=== PATIENT | male | born 1980 | race Caucasian/White ===

== ENCOUNTER 2023-10-18 23:16 | Emergency (ER) | payer BC ==
[~2023-10-18] VITALS: Ht 180.3 cm; Wt 113.6 kg
[2023-10-18 23:36] LABS: BASOPHILS # (AUTO) 0.1 X10'3 (0-0.2); EOSINOPHILS # (AUTO) 0.4 X10'3 (0-0.9); EOSINOPHILS % (AUTO) 3.7 % (0-6); HEMATOCRIT 46.3 % (42.0-52.0); HEMOGLOBIN 15.5 g/dl (14.0-17.9); LYMPHOCYTES # (AUTO) 3.7 X10'3 (1.1-4.8); LYMPHOCYTES % (AUTO) 34.7 % (21-51); MEAN CORPUSCULAR HEMOGLOBIN 29.6 PG (27.0-31.0); MEAN CORPUSCULAR HGB CONC 33.5 g/dL (33.0-36.5); MEAN CORPUSCULAR VOLUME 88.4 FL (78-98); MEAN PLATELET VOLUME 9.3 FL (7.4-10.4); MONOCYTES # (AUTO) 0.8 X10'3 (0-0.9); MONOCYTES % (AUTO) 7.2 % (2-12); NEUTROPHILS # (AUTO) 5.7 X10'3 (1.8-7.7); NEUTROPHILS % (AUTO) 53.4 % (42-75); PLATELET COUNT 308 X10'3 (140-440); RED BLOOD COUNT 5.24 X10'6 (4.70-6.10); WHITE BLOOD COUNT 10.7 X10'3 (4.5-11.0)
[2023-10-18] MEDS ORDERED: aspirin 325mg tablet, delayed-release (Ecotrin) PO ONE (23:40)
[2023-10-18] MEDS ORDERED: nitroGLYCERIN 0.4mg SUBLingual tab SL PRN (23:40)
[2023-10-18 23:50] VITALS: TEMP 98.3
[2023-10-18 23:54] LABS: ALANINE AMINOTRANSFERASE 66 U/L (12-78); ALBUMIN 4.3 G/DL (3.4-5.0); ALBUMIN/GLOBULIN RATIO 1.2 (1.1-1.5); ALKALINE PHOSPHATASE 65 IU/L (46-116); ANION GAP 8 (8-16); ASPARTATE AMINO TRANSFERASE 37 U/L (10-37); BILIRUBIN,TOTAL 0.3 MG/DL (0.1-1.0); BLOOD UREA NITROGEN 11 MG/DL (7-18); BUN/CREATININE RATIO 12.4 (10.0-20.0); CALCIUM 8.9 MG/DL (8.5-10.1); CHLORIDE 101 MMOL/L (99-107); CREATININE 0.89 MG/DL (0.60-1.10); GLUCOSE 196 MG/DL (70-104); POTASSIUM 3.5 MMOL/L (3.5-5.1); SODIUM 136 MMOL/L (135-145); TOTAL CARBON DIOXIDE 26.8 MMOL/L (24-32); TOTAL PROTEIN 7.8 G/DL (6.4-8.2); eCRCL 116 ML/MIN; eGFR > 90 ML/MIN
[2023-10-18] MEDS ORDERED: cloNIDine 0.1 mg tablet PO ONE (23:55)
[2023-10-18 23:56] LABS: PRO BRAIN NATRIURETIC PEPTIDE < 30 PG/ML (0-125)
[2023-10-19 00:03] VITALS: BP 143/83; PULSE 83; RESP 16; O2SAT 94
== END 2023-10-19 01:10 | disposition left against medical advice (07) ==
LOC: ER 23:17
DX: R20.0 Anesthesia of skin (principal); R06.02 Shortness of breath; I10 Essential (primary) hypertension; E11.9 Type 2 diabetes mellitus without complications; E78.00 Pure hypercholesterolemia, unspecified; Z72.89 Other problems related to lifestyle; Z87.898 Personal history of other specified conditions
CPT/HCPCS: 36415; 71045; 80053; 83880; 84484; 85025; 93005; 99285